=== PATIENT | male | born 1960 | race African-American/Black ===

== ENCOUNTER 2017-09-10 14:50 | Emergency (ER) | payer MEDICAID, OTHER ==
[~2017-09-10] VITALS: Ht 188 cm; Wt 85.7 kg
--- NOTE | 2017-09-10 15:10 | Emergency Room Report ---
History of Present Illness General Chief Complaint: Lower Extremity Injury Source: Patient Present Illness HPI [id number] walk-in with left ankle pain after accidental left ankle twist accidentally stepped on rock wearing flip-flops at home No previous ankle/foot fx Denies pain to left knee, lower left extremity Allergies: Coded Allergies: PENICILLINS (Verified Allergy, Unknown, 09/10/17) Uncoded Allergies: shellfish (Allergy, Unknown, 09/10/17) Patient History Past Medical History: none Past Surgical History: none Pertinent Family History: none Social History: Denies: smoking, alcohol use, drug use Immunizations: UTD Reviewed Nursing Documentation: PMH: Agreed, PSxH: Agreed Nursing Documentation-PMH Hx Cardiac Problems: Yes - VALVE PROBLEM Hx Diabetes: Yes Review of Systems All Other Systems: negative except mentioned in HPI Physical Exam Vital Signs Date Time Temp Pulse Resp B/P (MAP) Pulse Ox O2 Delivery O2 Flow Rate FiO2 09/10/17 15:00 97.2 101 20 134/76 95 Room Air Sp02 EP Interpretation: reviewed, normal General Appearance: normal inspection, well appearing, no apparent distress, alert, GCS 15, non-toxic Head: normocephalic, atraumatic Eyes: bilateral eye PERRL, bilateral eye EOMI ENT: normal ENT inspection, hearing grossly normal, normal voice Neck: normal inspection, full range of motion, supple, no bony tend Respiratory: normal inspection, lungs clear, normal breath sounds, no respiratory distress, no retraction, no wheezing Cardiovascular #1: regular rate, rhythm, no edema Gastrointestinal: normal inspection, normal bowel sounds, non tender, soft, no guarding, no hernia Genitourinary: no CVA tenderness Musculoskeletal: normal inspection, back normal, normal range of motion, Sheela' s Sign negative, other - Left ankle: Mild swelling to left lateral ankle. Palpable ttp to dorsum of ankle. ROM intact. No ttp to distal leg, knee Neurologic: normal inspection, alert, oriented x3, responsive, electroplating technician III-XII nml as tested, speech normal Psychiatric: normal inspection, judgement/insight normal, mood/affect normal Skin: normal inspection, normal color, no rash Medical Decision Making Diagnostic Impression: Primary Impression: Left ankle sprain Qualified Codes: S93.402A - Sprain of unspecified ligament of left ankle, initial encounter ER Course Left ankle sprain Xrays negative for fx, dislocation on ED review DESI wrap provided RICE, motrin PMD followup DC home Other X-Ray Diagnostic Results Other X-Ray Diagnostic Results : X-Ray ordered: left ankle # of Views/Limited Vs Complete: 3 View Indication: Pain EP Interpretation: Yes Interpretation: no dislocation, no soft tissue swelling, no fractures Impression: No acute disease Electronically Signed by: Dr Guillermina Engel MD Last Vital Signs Date Time Temp Pulse Resp B/P (MAP) Pulse Ox O2 Delivery O2 Flow Rate FiO2 09/10/17 15:00 97.2 101 20 134/76 95 Room Air Status: improved Disposition: HOME, SELF-CARE Scripts Ibuprofen* (MOTRIN*) 600 Mg Tablet 600 MG ORAL THREE TIMES A DAY for ankle pain, #30 TAB 0 Refills Prov: GUILLERMINA ENGEL M.D. 09/10/17 GUILLERMINA ENGEL M.D. Sep 10, 2017 15:10
[2017-09-10] MEDS ORDERED: IBUPROFEN600 MG ORAL (15:35)
[2017-09-10 15:40] VITALS: BP 135/80
--- NOTE | 2017-09-11 09:07 | Diagnostic Imaging Report ---
History: Pain. Technique: Frontal, lateral, and oblique views of the left ankle are provided. Comparison: No prior study is available for comparison. Findings: Overall bony mineralization is within normal limits. There is no evidence of acute fracture or dislocation. No significant erosive or arthritic change is noted. Mild superior calcaneal spurring is noted. The soft tissues appear grossly normal. No significant joint effusion is noted. Impression: No evidence of acute fracture or dislocation.
== END 2017-09-10 15:40 | disposition home or self-care (01) ==
LOC: EMR 15:21
DX: S93.402A Sprain of unspecified ligament of left ankle, initial encounter (principal); W22.8XXA Striking against or struck by other objects, initial encounter; Y92.019 Unspecified place in single-family (private) house as the place of occurrence of the external cause; Z88.0 Allergy status to penicillin; Z91.013 Allergy to seafood; M77.32 Calcaneal spur, left foot
CPT/HCPCS: 99283

== ENCOUNTER 2018-06-22 13:28 | Emergency (ER) | payer OTHER ==
[~2018-06-22] VITALS: Ht 188 cm; Wt 90.7 kg
[~2018-06-22 13:28] MED LIST: IBUPROFEN600 MG ORAL
[2018-06-22 13:36] VITALS: BP 128/88
--- NOTE | 2018-06-22 14:04 | Emergency Room Report ---
History of Present Illness General Chief Complaint: Overdose Present Illness HPI 57-year-old male patient presents ER brought in by ambulance for possible overdose on medication. Family member reports that he was at home acting more lethargic than normal, states they called an unstable to ER because he took 4 100 mg pills of Seroquel. Patient reports that he has a history of depression. Past several years has been taking Seroquel for the past 5 or 6 years. Reports she was feeling more depressed than usual so he took more medication. Denies thoughts of hurting himself or others. Denies other acute symptoms. Denies fever, chest pain, shortness of breath, abdominal pain. Reports history of using crack cocaine and smoking cigarettes. Has been using drugs for the past 40+ years, states last used last night. (Daren Ward.ACharo) Allergies: Coded Allergies: IODINE (Unverified Allergy, Unknown, 06/22/18) PENICILLINS (Verified Allergy, Unknown, 09/10/17) Uncoded Allergies: shellfish (Allergy, Unknown, 09/10/17) Patient History Past Medical History: see triage record Reviewed Nursing Documentation: PMH: Agreed; PSxH: Agreed (Daren Ward P.ACharo) Nursing Documentation-PMH Hx Cardiac Problems: Yes - VALVE PROBLEM Hx Asthma: Yes Hx Diabetes: Yes (Daren Ward P.Chaka) Review of Systems All Other Systems: negative except mentioned in HPI (Daren Ward P.ACharo) Physical Exam Vital Signs Date Time Temp Pulse Resp B/P (MAP) Pulse Ox O2 Delivery O2 Flow Rate FiO2 06/22/18 13:22 98.2 110 18 132/90 100 Room Air 98.2 Sp02 EP Interpretation: reviewed, normal General Appearance: well appearing, no apparent distress, alert, GCS 15, non- toxic Head: normocephalic, atraumatic Eyes: bilateral eye normal inspection, bilateral eye PERRL ENT: hearing grossly normal, normal pharynx, no angioedema, normal voice, uvula midline, moist mucus membranes Neck: full range of motion Respiratory: lungs clear, normal breath sounds, no rhonchi, no respiratory distress, no accessory muscle use, no wheezing, speaking full sentences Cardiovascular #1: regular rate, rhythm, no edema Gastrointestinal: non tender, soft, no mass, non-distended, no guarding, no rebound Genitourinary: no CVA tenderness Musculoskeletal: back normal, digits/nails normal, gait/station normal, normal range of motion, non-tender Neurologic: alert, oriented x3, responsive, emergency department nurse III-XII nml as tested, motor strength/tone normal, sensory intact Psychiatric: mood/affect normal (Daren Ward) Medical Decision Making PA Attestation Dr. Agosto is my supervising Physician whom patient management has been discussed with. (Daren Ward) Diagnostic Impression: Primary Impression: Polysubstance abuse ER Course Pt. presents to the ED BIB ambulance c/o possible drug overdose and erratic behavior. Ddx considered but are not limited to drug use, alcohol use, psychosis. Vital signs: are WNL, pt. is afebrile Ordered labs and medication. CBC, CMP, Urine drug screen, Acetaminophen level, Salicylate level, serum alcohol, Ativan 2 mg. ER COURSE: patient resting comfortably, in no acute distress, nontoxic appearing, denies acute complaints. Denies SI, HI. Do not believe patient is a danger to himself or others at this time. CBC and CMP unremarkable, Urine drug screen positive for cocaine, patient admits to cocaine use yesterday. Advised patient not to use cocaine, provided with contact information for drug rehabilitation. UA unremarkable. salicylates, acetaminophen not elevated, serum alcohol less than 3 advised patient not to smoke. consult with poison control, Seroquel and is extended-release, should be monitored for 6-12 hours however if not extended-release does not require monitoring for that length of time. Consult with patient's sister, she states Seroquel medication is not extended- release. Patient resting comfortably distress, okay to discharge home. Consult with Dr. Agosto, agrees with assessment and treatment plan. patient discharged to care of brother. DISCHARGE: At this time pt is stable for d/c to home. Patient is resting comfortably, in no acute distress, nontoxic appearing, talking without difficulty. Patient to take medications as instructed Will provide with patient care instructions and any necessary prescriptions. Care plan and follow-up instructions provided. Patient instructed to follow-up with primary care provider in 3 - 5 days. Patient questions asked and answered. Patient reports understanding and agreement to treatment plan. ER precautions given. Patient instructed to return to ER immediately for any new or worsening of symptoms including but not limited to increasing SOB, persistent fever. - Please note that this Emergency Department Report was dictated using [employer]otum[employer] winder machine operator technology software, occasionally this can lead to erroneous entry secondary to interpretation by the dictation equipment. Labs Test 06/22/18 13:50 06/22/18 14:10 Urine Color Pale yellow Urine Appearance Clear Urine pH 5 (4.5-8.0) Urine Specific [place] 1.010 (1.005-1.035) Urine Protein Negative (NEGATIVE) Urine Glucose (UA) Negative (NEGATIVE) Urine Ketones Negative (NEGATIVE) Urine Occult Blood Negative (NEGATIVE) Urine Nitrite Negative (NEGATIVE) Urine Bilirubin Negative (NEGATIVE) Urine Urobilinogen Normal MG/DL (0.0-1.0) Urine Leukocyte Esterase Negative (NEGATIVE) Urine Opiates Screen Negative (NEGATIVE) Urine Barbiturates Screen Negative (NEGATIVE) Phencyclidine (PCP) Screen Negative (NEGATIVE) Urine Amphetamines Screen Negative (NEGATIVE) Urine Benzodiazepines Screen Negative (NEGATIVE) Urine Cocaine Screen Positive (NEGATIVE) Urine Marijuana (THC) Screen Negative (NEGATIVE) White Blood Count 4.0 K/UL (4.8-10.8) Red Blood Count 5.00 M/UL (4.70-6.10) Hemoglobin 13.9 G/DL (14.2-18.0) Hematocrit 43.3 % (42.0-52.0) Mean Corpuscular Volume 87 FL (80-99) Mean Corpuscular Hemoglobin 27.8 PG (27.0-31.0) Mean Corpuscular Hemoglobin Concent 32.1 G/DL (32.0-36.0) Red Cell Distribution Width 12.7 % (11.6-14.8) Platelet Count 214 K/UL (150-450) Mean Platelet Volume 6.8 FL (6.5-10.1) Neutrophils (%) (Auto) 48.2 % (45.0-75.0) Lymphocytes (%) (Auto) 39.0 % (20.0-45.0) Monocytes (%) (Auto) 5.4 % (1.0-10.0) Eosinophils (%) (Auto) 5.9 % (0.0-3.0) Basophils (%) (Auto) 1.4 % (0.0-2.0) Sodium Level 142 MMOL/L (136-145) Potassium Level 4.3 MMOL/L (3.5-5.1) Chloride Level 109 MMOL/L (98-107) Carbon Dioxide Level 24 MMOL/L (21-32) Anion Gap 9 mmol/L (5-15) Blood Urea Nitrogen 20 mg/dL (7-18) Creatinine 1.1 MG/DL (0.55-1.30) Estimat Glomerular Filtration Rate > 60 mL/min (>60) Glucose Level 125 MG/DL (74-106) Calcium Level 9.0 MG/DL (8.5-10.1) Total Bilirubin 0.4 MG/DL (0.2-1.0) Aspartate Amino Transf (AST/SGOT) 23 U/L (15-37) Alanine Aminotransferase (ALT/SGPT) 23 U/L (12-78) Alkaline Phosphatase 47 U/L (46-116) Total Protein 7.1 G/DL (6.4-8.2) Albumin 3.3 G/DL (3.4-5.0) Globulin 3.8 g/dL Albumin/Globulin Ratio 0.9 (1.0-2.7) Salicylates Level 1.1 ug/mL (2.8-20) Acetaminophen Level < 2 MCG/ML (10-30) Serum Alcohol < 3 mg/dL (Daren Ward P.A.) ER Course I spoke with sister. Also evaluated patient. Mr. Brothers took 4 tablets of Seroquel. He wanted to relax and sleep. With UDS positive for cocaine I do suspect polysubstance abuse in order to achieve intoxication. He vehemently and repeatedly denies to several providers that he did not want to harm himself. He understands that he did not take a lethal dose. He will refrain for taking the inappropriate dose in the future. once tachycardia and lethargy resolves, he will be appropriate for discharge. (CARYL AGOSTO) EKG Diagnostic Results Rate: tachycardiac Rhythm: NSR ST Segments: no acute changes ASA given to the pt in ED: No PA Scribe Text Jin Ward PA-C (Daren Ward P.A.) Rhythm Strip Diag. Results EP Interpretation: yes Rate: 102 Rhythm: NSR, no PVC's, no ectopy PA Scribe Text Jin Ward PA-C (Daren Ward) Chest X-Ray Diagnostic Results Chest X-Ray Diagnostic Results : Chest X-Ray Ordered: Yes # of Views/Limited/Complete: 1 View Indication: Chest Pain EP Interpretation: Yes PA Xray: Interpretation reviewed, by supervising MD, and agrees with findings. Interpretation: no consolidation, no effusion, no pneumothorax, no acute cardiopulmonary disease Impression: No acute disease KIRILL Scribe Text Jin Ward PA-C (Daren Ward) Last Vital Signs Date Time Temp Pulse Resp B/P (MAP) Pulse Ox O2 Delivery O2 Flow Rate FiO2 06/22/18 13:22 98.2 110 18 132/90 100 Room Air 98.2 (Daren Ward) Disposition: HOME, SELF-CARE Condition: Stable Additional Instructions: Followup with primary care provider in 3 -5 days. Don't use drugs. Take medications as directed. Patient questions asked and answered. ER precautions given, patient instructed to return to ER immediately for any new or worsening of symptoms. Daren Ward Jun 22, 2018 14:04 CARYL AGOSTO Jun 22, 2018 15:53
[2018-06-22 14:09] LABS: APPEARANCE,URINE CLEAR; BILIRUBIN, URINE NEGATIVE (NEGATIVE); COLOR,URINE PALE YELLOW; GLUCOSE, URINE (UA) NEGATIVE (NEGATIVE); KETONES,URINE NEGATIVE (NEGATIVE); LEUKOCYTE ESTERASE ,URINE NEGATIVE (NEGATIVE); NITRITE,URINE NEGATIVE (NEGATIVE); PH,URINE 5 (4.5-8.0); PROTEIN,URINE NEGATIVE (NEGATIVE); UROBILINOGEN,URINE NORMAL MG/DL (0.0-1.0)
[2018-06-22 14:27] LABS: BASOPHILS % (AUTO) 1.4 % (0.0-2.0); EOSINOPHILS % (AUTO) 5.9 % (0.0-3.0); HEMATOCRIT 43.3 % (42.0-52.0); HEMOGLOBIN 13.9 G/DL (14.2-18.0); MEAN CORPUSCULAR VOLUME 87 FL (80-99); MONOCYTES % (AUTO) 5.4 % (1.0-10.0); NEUTROPHILS % (AUTO) 48.2 % (45.0-75.0); PLATELET COUNT 214 K/UL (150-450); RED CELL DISTRIBUTION WIDTH 12.7 % (11.6-14.8)
[2018-06-22 14:36] LABS: ANION GAP 9 mmol/L (5-15); BLOOD UREA NITROGEN 20 mg/dL (7-18); CARBON DIOXIDE 24 MMOL/L (21-32); CHLORIDE 109 MMOL/L (98-107); CREATININE 1.1 MG/DL (0.55-1.30); POTASSIUM 4.3 MMOL/L (3.5-5.1); SODIUM 142 MMOL/L (136-145)
[2018-06-22 14:39] LABS: ALANINE AMINOTRANSFERASE 23 U/L (12-78); ALBUMIN 3.3 G/DL (3.4-5.0); ALBUMIN/GLOBULIN RATIO 0.9 (1.0-2.7); ALKALINE PHOSPHATASE 47 U/L (46-116); ASPARTATE AMINO TRANSFERASE 23 U/L (15-37); BILIRUBIN,TOTAL 0.4 MG/DL (0.2-1.0)
--- NOTE | 2018-06-22 15:09 | Diagnostic Imaging Report ---
Indication: Chest pain Technique: One view of the chest Comparison: none Findings: Lungs and pleural spaces are clear. Heart size is normal Impression: No acute process
[2018-06-22 15:52] VITALS: BP 117/66
[2018-06-22 17:25] VITALS: BP 117/66
--- NOTE | 2018-06-23 13:36 | Cardiology Report ---
APPROVED REPORT EKG Measurement Heart [id number] MD [id number] Sinus tachycardia Minimal voltage criteria for LVH, may be normal variant Borderline ECG
== END 2018-06-22 17:38 | disposition home or self-care (01) ==
LOC: EDBD 13:28 → EMR 14:09
DX: F19.10 Other psychoactive substance abuse, uncomplicated (principal); E11.9 Type 2 diabetes mellitus without complications; J45.909 Unspecified asthma, uncomplicated; Z88.3 Allergy status to other anti-infective agents; Z88.0 Allergy status to penicillin; Z91.013 Allergy to seafood
CPT/HCPCS: 36415; 71045; 80053; 80307; 80329; 81003; 85025; 93005; 96360; 99284